=== PATIENT | male | born 1945 | race Caucasian/White ===

== ENCOUNTER 2021-04-28 12:10 | Inpatient (IN) | payer OTHER, MEDICARE ==
[~2021-04-28] VITALS: Ht 167.6 cm; Wt 69.7 kg
[2021-04-28 14:48] LABS: Bun/Creatinine Ratio 21.5 (12.0-20.0); Calcium, Blood 9.3 mg/dL (8.5-10.1); Creatinine, Blood 1.77 mg/dL (0.60-1.20); Potassium, Blood 4.6 mmol/L (3.5-5.5); Troponin I 0.058 ng/mL (0.000-0.040)
[2021-04-28] MEDS ORDERED: LISI20 PO (16:44)
[2021-04-28] MEDS ORDERED: FINA5 PO (16:45)
[2021-04-28] MEDS ORDERED: ELIQUIS5 MG PO (16:45)
[2021-04-28] MEDS ORDERED: GLUCOPHAGE1000 M1 PO (16:45)
[2021-04-28] MEDS ORDERED: Crestor40 MG PO (16:45)
[2021-04-28] MEDS ORDERED: CARV6.25 PO (16:46)
[2021-04-28] MEDS ORDERED: TAMS.4ER PO (16:46)
--- NOTE | 2021-04-28 21:50 | NUR ---
PHYSICIAN COMMUNICATION CONTACTED JIG BORING MACHINE OPERATOR FOR METAL PHYSICIAN, JOSEMANUEL KUMAR, TO NOTIFY HER OF PATIENT'S STAT TROP RESULT PER DR JOHNSON'S REQUEST. NO ORDERS GIVEN. ASKED JOSEMANUEL KUMAR FOR AN ORDER TO OBTAIN [facility]. JOSEMANUEL KUMAR APPROVED.
[2021-04-29 03:02] LABS: BASOPHILS ABSOLUTE AUTO 0.03 K/mm3 (0.00-0.23); BASOPHILS PERCENT AUTO 0 % (0-2); EOSINOPHILS ABSOLUTE AUTO 0.12 K/mm3 (0.00-0.68); EOSINOPHILS PERCENT AUTO 2 % (0-6); Hemoglobin 11.7 g/dL (13.5-17.5); IMMATURE GRAN ABSOLUTE AUTO 0.01 K/mm3 (0.00-0.10); IMMATURE GRAN PERCENT AUTO 0 % (0-1); LYMPHOCYTES ABSOLUTE AUTO 2.23 K/mm3 (0.84-5.20); LYMPHOCYTES PERCENT AUTO 32 % (21-46); MONOCYTES ABSOLUTE AUTO 0.74 K/mm3 (0.16-1.47); MONOCYTES PERCENT AUTO 11 % (4-13); Mean Corpuscular HGB Conc 32.5 g/dL (31.5-36.5); Mean Corpuscular Volume 89 fL (80-100); Mean Platelet Volume 12.3 fL (9.1-12.4); NEUTROPHILS ABSOLUTE AUTO 3.75 K/mm3 (1.96-9.15); NEUTROPHILS PERCENT AUTO 55 % (41-73); Platelet Count 126 K/mm3 (150-400); RDW Coefficient Variation 12.8 % (11.7-14.2); RDW Standard Deviation 41.6 fL (35.1-46.3); Red Blood Cell Count 4.03 M/mm3 (4.30-5.90); White Blood Cell Count 6.88 K/mm3 (4.00-11.30)
[2021-04-29 03:20] LABS: Albumin, Blood 3.2 g/dL (3.4-5.0); Albumin/Globulin Ratio 1.1 (0.8-1.8); Bilirubin, Total 0.8 mg/dL (0.1-1.0); Bun/Creatinine Ratio 19.2 (12.0-20.0); Calcium, Blood 8.8 mg/dL (8.5-10.1); Creatinine, Blood 1.77 mg/dL (0.60-1.20); Globulin, Blood 2.9 g/dL (2.2-4.0); Magnesium, Blood 1.8 mg/dL (1.6-2.4); Potassium, Blood 4.3 mmol/L (3.5-5.5); Total Protein, Blood 6.1 g/dL (6.4-8.2)
--- NOTE | 2021-04-29 05:41 | NUR ---
SHIFT SUMMARY PATIENT ARRIVED TO ROOM 313 VIA STRETCHER. WAS ABLE TO SELF TRANSFER TO THE BED AND IS FAIRLY STABLE ON HIS FEET. HE IS ALERT AND ORIENTED X4. HAS NO COMPLAINTS OF CHEST PAIN OR SHORTNESS OF BREATH. PATIENT SLEPT WELL OVERNIGHT. NO ACUTE ISSUES NOTED. IV PATENT AND FLUSHED. BED IN LOWEST POSITION WITH WHEELS LOCKED AND ALARM ON. CALL LIGHT WITHIN REACH. REPORT GIVEN TO ONCOMING RN.
--- NOTE | 2021-04-29 18:44 | NUR ---
SHIFT SUMMARY PT IS AOX4 AND PLEASANT. PT IS BLIND IN LEFT EYE. PT DENIES PAIN, N/V, SOB. PT DID HAVE EPISODE OF SOB THIS AM AND WAS FOUND TO BE HYPOTENSIVE ON VITALS CHECK. THIS RN NOTIFIED DR. DONAHUE OF EVENT AND 300 ML BOLUS NS WAS ORDERED AND GIVEN. PT'S BP HAS SINCE NORMALIZED. COREG HELD THIS SHIFT FOR LOWER BP AND HR 60S. PT'S APPETITE IS GOOD. PT WORKED WITH PT/OT. PT TELE REMAINS PACED. TROPONINS CONTINUE TO ELEVATE AND CARDIOLOGY IS CONSULTED. ECHO WAS PERFORMED THIS AM. PT'S SON CAME TO VISIT TODAY. PLAN IS TO CONTINUE TO MONITOR CARDIAC FUNCTION. PT IS IN BED, CALL LIGHT IN REACH, BED IN LOW POSITION.
--- NOTE | 2021-04-30 06:27 | NUR ---
SHIFT SUMMARY PATIENT ALERT AND ORIENTED. HAD NO COMPLAINTS OF CHEST PAIN OR DIZZINESS. PATIENT HAD A 13 BEAT RUN OF V-TACH, UPON ASSESSMENT PATIENT WAS ASYMPTOMATIC, VITAL SIGNS WNL. IV PATENT AND FLUSHED. BED IN LOWEST POSITION WITH WHEELS LOCKED. CALL LIGHT WITHIN REACH. REPORT GIVEN TO ONCOMING RN.
[2021-04-30 07:45] LABS: BASOPHILS ABSOLUTE AUTO 0.05 K/mm3 (0.00-0.23); BASOPHILS PERCENT AUTO 1 % (0-2); EOSINOPHILS ABSOLUTE AUTO 0.13 K/mm3 (0.00-0.68); EOSINOPHILS PERCENT AUTO 2 % (0-6); Hematocrit 40.7 % (37.0-53.0); IMMATURE GRAN ABSOLUTE AUTO 0.01 K/mm3 (0.00-0.10); IMMATURE GRAN PERCENT AUTO 0 % (0-1); LYMPHOCYTES ABSOLUTE AUTO 2.31 K/mm3 (0.84-5.20); LYMPHOCYTES PERCENT AUTO 38 % (21-46); MONOCYTES ABSOLUTE AUTO 0.71 K/mm3 (0.16-1.47); MONOCYTES PERCENT AUTO 12 % (4-13); Mean Corpuscular HGB 28.7 pg (26.0-34.0); Mean Corpuscular HGB Conc 31.9 g/dL (31.5-36.5); Mean Corpuscular Volume 90 fL (80-100); Mean Platelet Volume 12.6 fL (9.1-12.4); NEUTROPHILS ABSOLUTE AUTO 2.91 K/mm3 (1.96-9.15); NEUTROPHILS PERCENT AUTO 48 % (41-73); Platelet Count 126 K/mm3 (150-400); RDW Coefficient Variation 12.8 % (11.7-14.2); RDW Standard Deviation 41.5 fL (35.1-46.3); Red Blood Cell Count 4.53 M/mm3 (4.30-5.90); White Blood Cell Count 6.12 K/mm3 (4.00-11.30)
[2021-04-30 08:04] LABS: Bun/Creatinine Ratio 18.1 (12.0-20.0); Calcium, Blood 9.2 mg/dL (8.5-10.1); Creatinine, Blood 1.77 mg/dL (0.60-1.20); Potassium, Blood 4.1 mmol/L (3.5-5.5)
--- NOTE | 2021-04-30 18:20 | NUR ---
1811: VENTRICULAR TACHYCARDIA RUN REPORTED BY MILLED LUMBER GRADER. PATIENT ALERT, TALKING ON THE PHONE, REPORTS FEELING ASYMPTOMATIC. BP 108/56 PULSE 90 SATS 96% ON RA.
--- NOTE | 2021-04-30 18:22 | NUR ---
[facility] [employer] ORDER RECIEVED. ATTEMPTED TO CALL ORDER IN. REQUIRES DOCUMENTATION, SPOKE WITH TRACTOR TRAILER MOVING VAN DRIVER FOR ASSISTANCE AND WAS RECOMMENDED TO CONTACT CM. MESSAGE LEFT FOR CM TO PROCESS ORDER ON [facility], THEY DID NOT ANSWER.
--- NOTE | 2021-05-01 04:22 | NUR ---
SHIFT SUMMARY ASSUMED CARE OF PT AT 1900. PT IS A/OX4. HEART SOUNDS REGULAR, TELE SHOWED PACED AT 59. LUNG SOUNDS CLEAR, PT C/O SOB TO RT WHO PUT PT ON 1L NC BUT PT STATES THAT HE WAS SOB BECAUSE HE WAS ANXIOUS, PT HAD NO OTHER COMPLAINTS DURING THE NIGHT. PT WAS INDEPENDENT IN ROOM. PT HAS BEEN NPO SINCE MIDNIGHT. CALL LIGHT IN REACH, BED IN LOWEST POSITION.
--- NOTE | 2021-05-01 10:45 | NUR ---
PT LEFT FOR PROCEDURE. NPO SINCE MIDNIGHT. AWAITING PCU ROOM ASSIGNMENT AND THEN WILL CALL FOR REPORT AND TAKE BELONGINGS.
[2021-05-01 10:49] LABS: Bun/Creatinine Ratio 18.8 (12.0-20.0); Calcium, Blood 9.3 mg/dL (8.5-10.1); Creatinine, Blood 1.76 mg/dL (0.60-1.20); Magnesium, Blood 1.9 mg/dL (1.6-2.4); Potassium, Blood 4.1 mmol/L (3.5-5.5)
--- NOTE | 2021-05-01 13:00 | NUR ---
ASSUMED CARE FROM [facility], S/P ANGIO TO RIGHT GROIN. DRESSING DRY, NO SWELLING, BLEEDING OR BRUISING. PER [facility] CENTER BEDREST X6 HOURS. PT LAYING FLAT, VSS, PEDAL PULSE PALPABLE BILATERALLY. A/A/OX4, WILL CONTINUE TO MONITOR.
--- NOTE | 2021-05-01 14:30 | NUR ---
NOTIFIED DR. HOOPER OF PATIENT TRANSFER ARRANGEMENT TO [facility] BY DR. MARCUS, ACCEPTING PHYSICIAN MAKENNA. DR. HOOPER STATED THAT HE WOULD PUT IN ORDERS FOR COBRA TRANSFER. DR. MARCUS HAD ORDERED FOR PATIENT TO TRANSFER WITH NORMAL SALINE AT 50 MLS/HR.
[2021-05-01 16:04] LABS: SARS-Cov-2 (COVID-19) PCR, MMC NEGATIVE (NEGATIVE)
--- NOTE | 2021-05-01 17:56 | NUR ---
COBRA TRANSFER TO [facility], REPORT TO RN. REPORT TO AMBULANCE CREW. NS INFUSING AT 50ML HR. VSS, A/A/OX4. RIGHT GROIN SITE DRESSING CLEAN DRY AND INTACT, NO SWELLING OR BRUISING AT SITE. MAINTAINING BED REST AT TIME OF TRANSFER.
== END 2021-05-01 16:50 | disposition short-term general hospital (02) | DRG 280 ==
LOC: ER 12:10 → MEDS 17:21 → PCU 05-01 12:40
PROVIDERS: Emergency Medicine; Family Medicine; Hospitalist; Internal Medicine Cardiovascular Disease; ADMIT Internal Medicine
PROC: 4A023N8 Measurement of Cardiac Sampling and Pressure, Bilateral, Percutaneous Approach (ICD-10-PCS; principal; 2021-05-01)
PROC: B2111ZZ Fluoroscopy of Multiple Coronary Arteries using Low Osmolar Contrast (ICD-10-PCS; 2021-05-01)
PROC: B2181ZZ Fluoroscopy of Left Internal Mammary Bypass Graft using Low Osmolar Contrast (ICD-10-PCS; 2021-05-01)
PROC: B2131ZZ Fluoroscopy of Multiple Coronary Artery Bypass Grafts using Low Osmolar Contrast (ICD-10-PCS; 2021-05-01)
DX: I13.0 Hypertensive heart and chronic kidney disease with heart failure and stage 1 through stage 4 chronic kidney disease, or unspecified chronic kidney disease (principal); I50.21 Acute systolic (congestive) heart failure; I21.A1 Myocardial infarction type 2; I48.92 Unspecified atrial flutter; N17.9 Acute kidney failure, unspecified; I47.2 Ventricular tachycardia; I35.0 Nonrheumatic aortic (valve) stenosis; Z20.822 Contact with and (suspected) exposure to COVID-19; I48.91 Unspecified atrial fibrillation; J44.9 Chronic obstructive pulmonary disease, unspecified; N18.30 Chronic kidney disease, stage 3 unspecified; I25.10 Atherosclerotic heart disease of native coronary artery without angina pectoris; I95.9 Hypotension, unspecified; E11.22 Type 2 diabetes mellitus with diabetic chronic kidney disease; G47.33 Obstructive sleep apnea (adult) (pediatric); Z87.891 Personal history of nicotine dependence; Z95.0 Presence of cardiac pacemaker; Z95.1 Presence of aortocoronary bypass graft; Z86.73 Personal history of transient ischemic attack (TIA), and cerebral infarction without residual deficits; Z79.01 Long term (current) use of anticoagulants; Z79.84 Long term (current) use of oral hypoglycemic drugs; Z79.899 Other long term (current) drug therapy
CPT/HCPCS: 36415; 71045; 76937; 80048; 80053; 82947; 83735; 83880; 84145; 84484; 85025; 92526; 92610; 93005; 93010; 93281; 93306; 93459; 94760; 94762; 96374; 97161; 97165; 97535; 99285-25; A9270; C1769; C1894; G0278; J1644; J1650; J1940; J2250; J2370; J3010; J3475; J7030; J7050; Q9967; U0004